=== PATIENT | female | born 1970 | race American Indian/Alaskan Native ===

== ENCOUNTER 2017-05-17 08:15 | Emergency (ER) | payer BC, OTHER ==
[2017-05-17] MEDS ORDERED: NACL 0.9% 1000 ML 1,000 ML IV ONE (08:22)
[2017-05-17 08:50] LABS: Basophils # (Auto) 0.1 K/mm3 (0.0-0.1); Eosinophils # (Auto) 0.3 K/mm3 (0.0-0.4); Eosinophils % (Auto) 4.1 % (0.0-4.3); Hematocrit 39.5 % (30.3-42.9); Hemoglobin 13.3 gm/dl (10.1-14.3); Lymphocytes # (Auto) 1.2 K/mm3 (1.2-5.4); Lymphocytes % (Auto) 16.8 % (13.4-35.0); Mean Corpuscular HGB Conc 34 % (30-34); Mean Corpuscular Hemoglobin 29 pg (28-32); Mean Corpuscular Volume 86 fl (79-97); Monocytes # (Auto) 0.6 K/mm3 (0.0-0.8); Monocytes % (Auto) 8.4 % (0.0-7.3); Platelet Count 380 K/mm3 (140-440); Red Blood Count 4.57 M/mm3 (3.65-5.03)
[2017-05-17 09:05] LABS: Alanine Aminotransferase 15 units/L (7-56); Albumin 4.1 g/dL (3.9-5); BUN/Creatinine Ratio 9; Blood Urea Nitrogen 6 mg/dL (7-17); Calcium 9.2 mg/dL (8.4-10.2); Hemolysis Index 8; Lipase 27 units/L (13-60)
[2017-05-17 09:06] LABS: INR 0.88 (0.87-1.13)
[2017-05-17 09:07] LABS: Partial Thromboplastin Time 32.6 Sec. (24.2-36.6)
[2017-05-17 10:52] VITALS: BP 132/84
--- NOTE | 2017-05-17 11:04 | Emergency Department Report ---
ED General Adult HPI - General Chief complaint: GI Bleed Stated complaint: BLEEDING OUT OF RECTUM Time Seen by Provider: 05/17/17 10:41 Source: patient Mode of arrival: Ambulatory Limitations: No Limitations - History of Present Illness Initial comments: Patient reports light red blood when she used the toilet bowl yesterday. She felt something that seemed consistent with a hemorrhoid. She came to the hospital for further care and evaluation there. She is not complaining of any symptoms now. She's had no recurrent bleeding over several hours. -: Sudden Location: buttocks Quality: other (mild discomfort only) Improves with: none Worsens with: none Associated Symptoms: denies other symptoms Treatments Prior to Arrival: none - Related Data Allergies Allergy/AdvReac Type Severity Reaction Status Date / Time No Known Allergies Allergy Verified 05/17/17 10:50 ED Review of Systems ROS: Stated complaint: BLEEDING OUT OF RECTUM Other details as noted in HPI Constitutional: denies: chills, fever Eyes: denies: eye pain, eye discharge, vision change ENT: denies: ear pain, throat pain Respiratory: denies: cough, shortness of breath, wheezing Cardiovascular: denies: chest pain, palpitations Endocrine: no symptoms reported Gastrointestinal: as per HPI, hematochezia. denies: abdominal pain, nausea, diarrhea Genitourinary: denies: urgency, dysuria, discharge Musculoskeletal: denies: back pain, joint swelling, arthralgia Skin: denies: rash, lesions Neurological: denies: headache, weakness, paresthesias Psychiatric: denies: anxiety, depression Hematological/Lymphatic: denies: easy bleeding, easy bruising ED Past Medical Hx - Past Medical History Previous Medical History?: Yes Additional medical history: Sinusitis - Surgical History Past Surgical History?: No - Social History Smoking Status: Never Smoker Substance Use Type: Alcohol ED Physical Exam - General Limitations: No Limitations General appearance: alert, in no apparent distress - Head Head exam: Present: atraumatic, normocephalic - Eye Eye exam: Present: normal appearance, PERRL, EOMI. Absent: scleral icterus - ENT ENT exam: Present: mucous membranes moist - Neck Neck exam: Present: normal inspection - Respiratory Respiratory exam: Present: normal lung sounds bilaterally. Absent: respiratory distress - Cardiovascular Cardiovascular Exam: Present: regular rate, normal rhythm. Absent: systolic murmur, diastolic murmur, rubs, gallop - GI/Abdominal GI/Abdominal exam: Present: soft, normal bowel sounds. Absent: distended, tenderness, guarding, rebound, rigid - Rectal Rectal exam: Present: other (a solitary thrombosed hemorrhoid with spontaneous evacuation of a clot which is still in situ but essentially evacuated as noted. There is no active bleeding) - Extremities Exam Extremities exam: Present: normal inspection - Back Exam Back exam: Present: normal inspection - Neurological Exam Neurological exam: Present: alert, oriented X3 - Psychiatric Psychiatric exam: Present: normal affect, normal mood - Skin Skin exam: Present: warm, dry, intact, normal color. Absent: rash ED Course Vital Signs 05/17/17 05/17/17 05/17/17 08:18 10:18 10:51 Temperature 98.6 F Pulse Rate 103 H 93 H 72 Respiratory 20 17 17 Rate Blood Pressure 161/93 Blood Pressure 129/71 132/84 [Right] O2 Sat by Pulse 97 99 98 Oximetry ED Medical Decision Making - Lab Data Result diagrams: 05/17/17 08:29 05/17/17 08:34 Laboratory Results - last 24 hr 05/17/17 05/17/17 05/17/17 08:26 08:29 08:34 WBC 7.3 RBC 4.57 Hgb 13.3 Hct 39.5 MCV 86 MCH 29 MCHC 34 RDW 15.0 Plt Count 380 Lymph % (Auto) 16.8 [place] % (Auto) 8.4 H Eos % (Auto) 4.1 Baso % (Auto) 1.0 Lymph # 1.2 [place] # 0.6 Eos # 0.3 Baso # 0.1 Seg Neutrophils % 69.7 Seg Neutrophils # 5.1 PT 12.4 INR 0.88 APTT 32.6 Sodium Potassium Chloride Carbon Dioxide Anion Gap BUN Creatinine Estimated GFR BUN/Creatinine Ratio Glucose Calcium Total Bilirubin AST ALT Alkaline Phosphatase Total Protein Albumin Albumin/Globulin Ratio Lipase Blood Type B POSITIVE Antibody Screen Negative 05/17/17 08:34 WBC RBC Hgb Hct MCV MCH MCHC RDW Plt Count Lymph % (Auto) [place] % (Auto) Eos % (Auto) Baso % (Auto) Lymph # [place] # Eos # Baso # Seg Neutrophils % Seg Neutrophils # PT INR APTT Sodium 136 L Potassium 3.6 Chloride 98.9 Carbon Dioxide 22 Anion Gap 19 BUN 6 L Creatinine 0.7 Estimated GFR > 60 BUN/Creatinine Ratio 9 Glucose 112 H Calcium 9.2 Total Bilirubin 0.40 AST 20 ALT 15 Alkaline Phosphatase 86 Total Protein 7.6 Albumin 4.1 Albumin/Globulin Ratio 1.2 Lipase 27 Blood Type Antibody Screen - EKG Data -: EKG Interpreted by Me EKG shows normal: sinus rhythm, axis, intervals, QRS complexes, ST-T waves Rate: normal - EKG Data Interpretation: normal EKG Critical care attestation.: If time is entered above; I have spent that time in minutes in the direct care of this critically ill patient, excluding procedure time. ED Disposition Clinical Impression: Rectal bleeding, External hemorrhoid Disposition: DC- TO HOME OR SELFCARE Is pt being admited?: No Does the pt Need Aspirin: No Condition: Stable Instructions: Hemorrhoids (ED), Rectal Bleeding (ED) Additional Instructions: He may sit in a hot tub if desired. [id number] hemorrhoid medicine if there is any discomfort. Follow-up with a primary care/GI specialist as recommended. Return any acute change or significant bleeding as needed. Referrals: BREANA CHAN MD [Primary Care Provider] - 3-5 Days [facility] [Provider Group] - 3-5 Days Time of Disposition: 11:04
== END 2017-05-17 11:25 | disposition home or self-care (01) ==
LOC: ED 08:15
DX: K64.4 Residual hemorrhoidal skin tags (principal); K62.5 Hemorrhage of anus and rectum
CPT/HCPCS: 36415; 80053; 83690; 85025; 85610; 85730; 86850; 86900; 86901; 93005; 93010; 96360; 99284; J7030